=== PATIENT | female | born 1945 | race African-American/Black ===

== ENCOUNTER 2024-04-28 10:48 | Emergency (ER) | payer OTHER ==
[~2024-04-28] VITALS: Ht 152.4 cm; Wt 49.0 kg
[2024-04-28 10:55] VITALS: BP_SYST 192; PULSE 99; RESP 17; TEMP 97.6; O2SAT 97
[2024-04-28 11:17] LABS: BASOPHILS % (AUTO) 0.6 % (0.0-2.0); EOSINOPHILS % (AUTO) 0.1 % (0.0-4.0); HEMATOCRIT 32.1 % (36-48); HEMOGLOBIN 10.7 g/dL (12.0-16.0); LYMPHOCYTES # (AUTO) 0.6 K/uL (1.0-5.5); LYMPHOCYTES % (AUTO) 10.6 % (20.5-51.5); MEAN CORPUSCULAR HEMOGLOBIN 27 pg (27-31); MEAN CORPUSCULAR HGB CONC 33 % (32-36); MEAN CORPUSCULAR VOLUME 82 fL (79.0-98.0); MONOCYTES # (AUTO) 0.5 K/uL (0.0-1.0); MONOCYTES % (AUTO) 9.4 % (1.7-9.3); NEUTROPHILS # (AUTO) 4.4 K/uL (1.8-7.7); NEUTROPHILS % (AUTO) 79.3 % (40.0-70.0); PLATELET COUNT (AUTO) 277 K/uL (130-430); RED BLOOD CELL COUNT(AUTO) 3.91 MIL/uL (4.2-6.2); RED CELL DISTRIBUTION WIDTH 14.9 % (9.0-15.0); WHITE BLOOD COUNT (AUTO) 5.5 K/uL (4.8-10.8)
[2024-04-28 11:35] LABS: INR 1.2 (0.8-1.2)
[2024-04-28 11:37] LABS: ALANINE AMINOTRANSFERASE 14 U/L (12-78); ALBUMIN 3.9 g/dL (3.4-4.8); ANION GAP 10 (5-15); ASPARTATE AMINOTRANSFERASE 15 U/L (10-37); CALCIUM 9.5 mg/dL (8.4-11.0); CARBON DIOXIDE 24 mmol/L (23-29); CHLORIDE 94 mmol/L (98-107); CREATININE 0.59 mg/dL (0.55-1.30); GLUCOSE 138 mg/dL (74-106); POTASSIUM 3.2 mmol/L (3.5-5.1); SODIUM SERUM 128 mmol/L (136-145); TOTAL BILIRUBIN 0.3 mg/dL (0.0-1.0); TOTAL PROTEIN, SERUM 7.8 g/dL (6.4-8.3); UREA NITROGEN, BLOOD 8 mg/dL (8-21)
[2024-04-28] MEDS: ONDANSETRON 4 MG ODT TAB PO ONE (11:53)
[2024-04-28] MEDS: IBUPROFEN 600 MG TABLET PO ONE (11:55)
[2024-04-28 11:58] LABS: ACETONE, SERUM NEGATIVE (NEGATIVE)
[2024-04-28 11:59] LABS: AMYLASE 32 U/L (0-100); BILIRUBIN,DIRECT 0.1 mg/dL (0.0-0.3); LIPASE 31 U/L (16-77)
[2024-04-28 12:40] LABS: BILIRUBIN,URINE NEGATIVE (NEGATIVE); CLARITY/URINE CLEAR (CLEAR); COLOR,URINE YELLOW (YELLOW); GLUCOSE,URINE NEGATIVE (NEGATIVE); KETONES,URINE NEGATIVE (NEGATIVE); LEUKOCYTE ESTERASE ,URINE NEGATIVE (NEGATIVE); NITRITE, URINE NEGATIVE (NEGATIVE); PROTEIN URINE 1+ (NEGATIVE); UROBILINOGEN,URINE 0.2 (0.2-1.0)
[2024-04-28 12:42] LABS: BLOOD, URINE TRACE (NEGATIVE)
[2024-04-28 13:11] LABS: BACTERIA,URINE None Seen /HPF (None Seen); WBC,URINE 0-3 /HPF (0-3)
[2024-04-28] MEDS ORDERED: IBUP-1969 PO (13:43)
[2024-04-28] MEDS ORDERED: ONDA-8 TL (13:43)
[2024-04-28] MEDS: NACL 0.9% 1,000 ML IV ONE (13:53)
[2024-04-28 15:27] VITALS: BP_SYST 159; PULSE 97; RESP 15; TEMP 98.6; O2SAT 99
[2024-05-02] MEDS ORDERED: MORPHINE 2 MG/ML INJ. SYRINGE IVP PRN (01:45)
[2024-05-02] MEDS ORDERED: HYDROcodone/ACETAMIN 5-325 MG TAB (NORCO/ VICODIN) PO PRN (01:45)
[2024-05-02] MEDS ORDERED: ACETAMINOPHEN 325 MG TABLET PO PRN (01:45)
[2024-05-02] MEDS ORDERED: ONDANSETRON HCL 4 MG/2 ML VIAL IVP PRN (01:45)
[2024-05-02] MEDS ORDERED: NACL 0.9% 1,000 ML IV SCH (01:45)
[2024-05-02 02:29] LABS: ANION GAP 5 (5-15); CALCIUM 9.1 mg/dL (8.4-11.0); CARBON DIOXIDE 28 mmol/L (23-29); CHLORIDE 88 mmol/L (98-107); CREATININE 0.71 mg/dL (0.55-1.30); GLUCOSE 99 mg/dL (74-106); POTASSIUM 4.1 mmol/L (3.5-5.1); SODIUM SERUM 121 mmol/L (136-145); UREA NITROGEN, BLOOD 9 mg/dL (8-21)
[2024-05-02] MEDS ORDERED: NOR10 PO (05:34)
[2024-05-02] MEDS ORDERED: RIVA10TA PO (05:34)
[2024-05-02] MEDS ORDERED: ROPI2TAB29 PO (05:34)
[2024-05-02] MEDS ORDERED: SILD20TA10 PO (05:34)
[2024-05-02] MEDS ORDERED: HYDR25TA86 PO (05:34)
[2024-05-02] MEDS ORDERED: DICY10SO PO (05:34)
[2024-05-02] MEDS ORDERED: [UNRECOGNIZED DRUG - CODE] PO (05:34)
[2024-05-02] MEDS ORDERED: NEU300 PO (05:34)
== END 2024-04-28 15:30 | disposition home or self-care (01) ==
LOC: SED 10:48
DX: K52.9 Noninfective gastroenteritis and colitis, unspecified (principal); E87.1 Hypo-osmolality and hyponatremia; R10.84 Generalized abdominal pain; R11.10 Vomiting, unspecified; Z88.1 Allergy status to other antibiotic agents; Z88.8 Allergy status to other drugs, medicaments and biological substances
CPT/HCPCS: 99284; 74176; 96360; 80076; 80048; 81001; 82009; 82150; 83690; 83930; 83935; 85025; 85610; 85730; 84484; 36415; 83605; 82397; Q0162; J7030; 81000; 81015